=== PATIENT | male | born 1985 | race Caucasian/White ===

== ENCOUNTER → 2021-09-18 | Outpatient (CLI) | payer MEDICARE ==
--- NOTE | 2021-09-18 08:20 | CT ---
EXAMINATION TYPE: CT abdomen pelvis wo con CT DLP: 1856.6 mGycm, Automated exposure control for dose reduction was used. DATE OF EXAM: 09/18/2021 8:09 AM COMPARISON: CT abdomen pelvis most recent from 02/24/2010. CLINICAL INDICATION:Male, 35 years old with history of R10.9 KIDNEY STONES; Lower abdominal/pelvic pa in radiating into upper abdomen TECHNIQUE: Axial CT of the abdomen and pelvis. Sagittal and coronal reformats were created on a [employer] workstation. Contrast used: None Oral contrast used: without Oral Contrast FINDINGS: LOWER CHEST: Unremarkable ABDOMEN LIVER: Diffusely hypoattenuating parenchyma. Fatty sparing around the gallbladder fossa. GALLBLADDER AND BILE DUCTS: Unremarkable. PANCREAS: Unremarkable. SPLEEN: Unremarkable. ADRENAL GLANDS: Unremarkable. KIDNEYS AND URETERS: No evidence of hydronephrosis or renal calculus. The ureters are unremarkable. PELVIS BLADDER: Unremarkable REPRODUCTIVE: Unremarkable. ABDOMEN & PELVIS STOMACH AND BOWEL: No evidence of bowel obstruction. Appendix is normal PERITONEUM: No evidence of pneumoperitoneum or free fluid. VASCULATURE: No evidence of aortic aneurysm. MUSCULOSKELETAL: No acute osseous abnormalities LYMPH NODES: No gross evidence for lymphadenopathy. SOFT TISSUE/ABDOMINAL WALL: Fat filled umbilical hernia measuring 10 mm at the neck. IMPRESSION: 1. No evidence of acute intra-abdominal process. Normal appendix, no urolithiasis or hydronephrosis. 2. Hepatic steatosis.
== END | disposition home or self-care (01) ==
LOC: RADCTMAIN 07:54
PROVIDERS: ATTEND Internal Medicine
DX: K76.0 Fatty (change of) liver, not elsewhere classified (principal)
CPT/HCPCS: 74176